=== PATIENT | male | born 1965 ===

== ENCOUNTER 2020-06-25 07:02 | Day surgery (SDC) | payer OTHER ==
[~2020-06-25] VITALS: Ht 175.3 cm; Wt 91.6 kg
[2020-06-25 10:37] VITALS: BP 130/75
== END 2020-06-25 11:05 | disposition home or self-care (01) | DRG 355 ==
LOC: ORM 07:02
PROVIDERS: ATTEND Surgery
PROC: 0WUF0JZ Supplement Abdominal Wall with Synthetic Substitute, Open Approach (ICD-10-PCS; principal; 2020-06-25)
DX: K42.9 Umbilical hernia without obstruction or gangrene (principal); Z20.828 Contact with and (suspected) exposure to other viral communicable diseases
CPT/HCPCS: C1781; J0131; J1100